=== PATIENT | male | born 1995 | race Caucasian/White ===

== ENCOUNTER 2021-12-01 12:35 | Emergency (ER) | payer SELFPAY ==
--- NOTE | 2021-12-01 12:44 | ECG_ITS ---
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 Measurements Intervals [place] Rate: 76 P: 76 MD: 172 QRS: 66 QRSD: 96 T: 45 QT: 362 QTc: 409 Interpretive Statements SINUS RHYTHM No previous ECG available for comparison Electronically Signed On 12-02-2021 8:30:54 CDT by Montserrat Carreno M.D. [id number]
[2021-12-01 12:50] VITALS: BP 164/67; PULSE 64; RESP 18; TEMP 36.8; O2SAT 96; BMI 22.8
--- NOTE | 2021-12-01 13:06 | XRR_ITS ---
PROCEDURE INFORMATION: Exam: XR Chest Exam date and time: 12/01/2021 1:23 PM Age: 26 years old Clinical indication: Chest wall pain; Additional info: Cp TECHNIQUE: Imaging protocol: Radiologic exam of the chest. Views: 1 view. COMPARISON: No relevant prior studies available. FINDINGS: Lungs: No pneumonia or pulmonary edema. Pleural spaces: No pleural effusion or pneumothorax. Heart/Mediastinum: The cardiac silhouette is not enlarged. The mediastinal contours are normal. Bones/joints: No acute osseous abnormality. XR/XR chest 1V portable [id number] IMPRESSION: No acute finding.
[2021-12-01 14:10] LABS: Basophils # 0.1 10^3/uL (0.0-0.1); Basophils % 0.5 %; Eosinophils % 0.2 %; Hematocrit 41.8 % (42.0-52.0); Hemoglobin 14.1 g/dL (11.7-16.6); Lymphocytes # 1.1 10^3/uL (0.8-4.8); Lymphocytes % 11.2 %; Mean Corpuscular HGB Conc 33.7 g/dL (30.0-36.0); Mean Corpuscular Hemoglobin 28.1 pg (28.0-34.0); Mean Corpuscular Volume 83.4 fl (80-94); Mean Platelet Volume 10.1 fL (7.4-10.4); Monocytes # 0.5 10^3/uL (0.2-0.9); Monocytes % 5.2 %; Neutrophils # 8.21 10^3/uL (1.8-7.7); Neutrophils % 82.6 %; Nucleated Red Blood Cells % 0 %; Platelet Count 225 10^3/cmm (130-400); Red Blood Count 5.01 10^6/uL (4.1-5.3); Red Cell Distribution Width 12.6 % (12.1-15.1); White Blood Count 9.9 10^3/uL (4.0-10.0)
[2021-12-01 14:34] LABS: Alanine Aminotransferase 23 U/L (0-41); Albumin Level 4.9 g/dL (3.5-5.2); Alkaline Phosphatase 57 U/L (40-130); Anion Gap 13.1 (5-19); Aspartate Amino Transferase 25 U/L (0-40); Blood Urea Nitrogen 21 mg/dL (6-20); Calcium 9.6 mg/dL (8.5-10.5); Carbon Dioxide 27 mmol/L (22-29); Chloride 104 mmol/L (98-107); Globulin 1.8 g/dL (1.3-4.6); Glomerular Filtration Rate 80.3 mL/min (90-130); Glucose 112 mg/dL (65-115); Osmolality Calculated 294 mOsm/kg (285-295); Potassium 4.1 mmol/L (3.5-5.1); Sodium 140 mmol/L (136-145); Total Bilirubin 0.5 mg/dL (0.15-1.2); Total Protein 6.7 g/dL (6.6-8.7)
[2021-12-01 14:52] LABS: Troponin(5th) Baseline 8 ng/L (0-15)
--- NOTE | 2021-12-01 15:06 | ECG_ITS ---
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 Measurements Intervals [place] Rate: 50 P: 59 [place]: 160 QRS: 55 QRSD: 93 T: 56 QT: 399 QTc: 364 Interpretive Statements SINUS BRADYCARDIA Compared to ECG 12/01/2021 12:44:53 Sinus rhythm no longer present Electronically Signed On 12-02-2021 8:34:53 CDT by Montserrat Carreno M.D. [id number]
[2021-12-01 16:41] LABS: Troponin 5 2HR 8.35 ng/L (0-15)
--- NOTE | 2021-12-01 17:08 | ED_ITS ---
HPI - Chest Pain General: Chief Complaint: Chest Pain Stated Complaint: CP Time Seen by Provider: 12/01/21 16:36 History of Present Illness: 26-year-old male presenting today with chest pain. Patient notes that he had left-sided chest pain, vision changes and numbness and tingling in his left arm. Patient notes this began after taking preworkout. Patient took 3 workout worked out. And started to have an elevated blood pressure and noticed these other symptoms. He notes the symptoms were severe. But have mostly resolved since arrival. No history of coronary artery disease. No history of sudden cardiac in his family. He denies chest pain now, shortness of breath now. He denies pain or swelling in his lower extremities. He denies recent travel recent surgeries. 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 He notes that he will often drink upwards of 600 mg of caffeine at night. Review of Systems General: Reports: 10 or more systems reviewed and unremarkable except in HPI and below Physical Exam Const: COMMON NORMALS: no acute distress, patient oriented x3 and alert GENERAL APPEARANCE: cooperative ORIENTATION/CONSCIOUSNESS: Yes awake, Yes oriented to person, Yes oriented to place and Yes oriented to time HENMT: COMMON NORMALS: normocephalic, atraumatic, external ears normal, Normal external nose present and moist oral mucous membranes HEAD & SCALP: normal to inspection, normocephalic and atraumatic NOSE: Normal external nose present GENERAL EAR: hearing grossly impaired EXTERNAL EAR: Yes external ears normal Eye: COMMON NORMALS: Equal, round and reactive pupils present, EOMs intact bilaterally, conjunctivae normal and no scleral icterus GENERAL EYE: appearance normal, both eyes and all related structures EYELID: eyelids normal CONJUNCTIVA: Yes conjunctivae normal SCLERA: sclerae normal PUPIL: Yes Equal, round and reactive pupils present Neck/C-Spine: COMMON NORMALS: full ROM, supple and no JVD GENERAL: Yes normal visual inspection Lymph: LYMPHATIC: no lymphadenopathy noted and no lymphedema noted Chest: COMMONS NORMALS: normal inspection of the chest Resp: COMMON NORMALS: normal respiratory effort, No retractions and No use of accessory muscles Cardio: COMMON NORMALS: no JVD, regular rate and regular rhythm RATE: regular rate RHYTHM: regular rhythm GI: COMMON NORMALS: Normal to inspection, nondistended, normoactive bowel sounds present : COMMON NORMALS: Yes no CVA tenderness BLADDER/KIDNEY EXAM: Yes no CVA tenderness Back/Pelvis: COMMON NORMALS: no CVA tenderness and thoracic and lumbar spine normal to inspection Extremity: COMMON NORMALS: normal to inspection, full ROM and capillary refill normal GENERAL: Yes normal exam except as noted Neuro: COMMON NORMALS: patient oriented x3, CN's II-XII intact bilaterally, moves all extremities, no focal motor deficits, no sensory deficits noted and gait normal SENSORIUM/ORIENTATION: Yes alert, Yes oriented to person, Yes oriented to place and Yes oriented to time Psych: COMMON NORMALS: mental status grossly normal, Normal thought process present, cooperative and normal affect THOUGHT PROCESS: Normal thought pr ocess present Skin: COMMON NORMALS: no rashes or lesions noted and no wounds GENERAL SKIN EXAM: no rashes or lesions noted Course Vital Signs: Vital signs: Vital Signs Temperature 98.2 F 12/01/21 12:50 Pulse Rate 64 12/01/21 12:50 Respiratory Rate 18 12/01/21 12:50 Blood Pressure 164/67 12/01/21 12:50 Pulse Oximetry 96 12/01/21 12:50 Oxygen Delivery Me thod 12/01/21 12:50 MDM - Chest Pain Medical Decision Making 26-year-old male presenting today with chest pain. EKG is without evidence of acute ischemic changes. Troponin x2 within normal range. CMP without evidence of renal insufficiency, abnormal liver enzymes or other findings. CBC is unremarkable. Patient's blood pressure resolved after observation in the ED. 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 Patient was given strict return precautions and recommended routine outpatient follow-up. Lab Data : 12/01/21 14:00 12/01/21 14:00 Radiology Impressions Chest X-Ray 12/01/21 13:06 IMPRESSION: No acute finding. Laboratory Results WBC 9.9 10^3/uL (4.0-10.0) 12/01/21 14:00 RBC 5.01 10^6/uL (4.1-5.3) 12/01/21 14:00 Hgb 14.1 g/dL (11.7-16.6) 12/01/21 14:00 Hct 41.8 % (42.0-52.0) L 12/01/21 14:00 MCV 83.4 fl (80-94) 12/01/21 14:00 MCH 28.1 pg (28.0-34.0) 12/01/21 14:00 MCHC 33.7 g/dL (30.0-36.0) 12/01/21 14:00 RDW 12.6 % (12.1-15.1) 12/01/21 14:00 Plt Count 225 10^3/cmm (130-400) 12/01/21 14:00 MPV 10.1 fL (7.4-10.4) 12/01/21 14:00 Neut % (Auto) 82.6 % 12/01/21 14:00 Lymph % (Auto) 11.2 % 12/01/21 14:00 [place] % (Auto) 5.2 % 12/01/21 14:00 Eos % (Auto) 0.2 % 12/01/21 14:00 Baso % (Auto) 0.5 % 12/01/21 14:00 Neut # (Auto) 8.21 10^3/uL (1.8-7.7) H 12/01/21 14:00 Lymph # (Auto) 1.1 10^3/uL (0.8-4.8) 12/01/21 14:00 [place] # (Auto) 0.5 10^3/uL (0.2-0.9) 12/01/21 14:00 Eos # (Auto) 0.0 10^3/uL (0.0-0.8) 12/01/21 14:00 Baso # (Auto) 0.1 10^3/uL (0.0-0.1) 12/01/21 14:00 Nucleated RBC % (auto) 0 % 12/01/21 14:00 Nucleated RBCs # 0.0 /100WBC 12/01/21 14:00 Sodium 140 mmol/L (136-145) 12/01/21 14:00 Potassium 4.1 mmol/L (3.5-5.1) 12/01/21 14:00 Chloride 104 mmol/L (98-107) 12/01/21 14:00 Carbon Dioxide 27 mmol/L (22-29) 12/01/21 14:00 Anion Gap 13.1 (5-19) 12/01/21 14:00 BUN 21 mg/dL (6-20) H 12/01/21 14:00 Creatinine 1.1 mg/dL (0.7-1.2) 12/01/21 14:00 GFR Calculation 80.3 mL/min (90-130) L 12/01/21 14:00 Glucose 112 mg/dL (65-115) 12/01/21 14:00 Calculated Osmolality 294 mOsm/kg (285-295) 12/01/21 14:00 Calcium 9.6 mg/dL (8.5-10.5) 12/01/21 14:00 Total Bilirubin 0.5 mg/dL (0.15-1.2) 12/01/21 14:00 AST 25 U/L (0-40) 12/01/21 14:00 ALT 23 U/L (0-41) 12/01/21 14:00 Alkaline Phosphatase 57 U/L (40-130) 12/01/21 14:00 Troponin T Baseline 8 ng/L (0-15) 12/01/21 14:00 Troponin T 120 Minute 8.35 ng/L (0-15) 12/01/21 15:54 Total Protein 6.7 g/dL (6.6-8.7) 12/01/21 14:00 Albumin 4.9 g/dL (3.5-5.2) 12/01/21 14:00 Globulin 1.8 g/dL (1.3-4.6) 12/01/21 14:00 Discharge Plan Discharge Patient Disposition: Home Clinical Impression: Chest pain Condition: Stable Discharge Orders: Discharge ED (Routine); Ordered 12/01/21 Ordered By: Jose Alberto Hawkins Patient Instructions: Hypertension (ED) Coding Level of Care Code ED [employer] for Patrick Larsen
[2021-12-01 17:25] LABS: Troponin 5 2HR Delta 0.35 ABS# (0-10)
[2021-12-01 17:38] VITALS: BP 147/81; PULSE 59; RESP 18; TEMP 36.8; O2SAT 96
== END 2021-12-01 17:40 | disposition home or self-care (01) ==
PROVIDERS: Registered Nurse; Emergency Provider Emergency Medicine
DX: R07.9 Chest pain, unspecified (principal)
CPT/HCPCS: 36415; 71045; 80053; 84484; 85025; 93005; 99285